=== PATIENT | male | born 1970 | race Caucasian/White ===

== ENCOUNTER 2023-10-09 10:42 | Emergency (ER) | payer OTHER, SELFPAY ==
[2023-10-09 10:44] VITALS: BP 120/85; PULSE 100; RESP 18; TEMP 37.1; O2SAT 98; BMI 36.2
--- NOTE | 2023-10-09 11:05 | ED.GENADULT ---
HPI - General Adult General Chief complaint: Abdominal Pain Stated complaint: heartburn, abdominal pain Time Seen by Provider: 10/09/23 10:48 History of Present Illness HPI narrative: Worsening acid reflux x1 month . Worried about an ulcer (had one 11 years ago). Pain from epigastric into throat. Some nausea but no emesis. Increased stress over past month. 53-year-old man presenting to the emergency department with concern of a burning epigastric pain that can radiate over to the left upper abdomen as well. He is worried that maybe has recurrence of his ulcer. Apparently had 110 or 11 years ago. He recalls on his last endoscopy that the ulcer had healed but there was some scarring still noted. He can feel little nauseated with this pain but isn't a major complaint. He feels that what aggravates in particular is when he gets worked up about something. There has been a good deal of on specified stress. Actually initiated fluoxetine about a week ago with visit with his primary care provider. This discomfort has been present over the last at least 3 weeks. Not have any radiating symptoms into his legs. Has doubled his daily PPI I believe on advice of his primary. Is also taking lot of Gaviscon. Nothing really seems to help. Stools are normal. Does have hemorrhoids but has not noticed any hematochezia. No melena. Diarrhea. No fever. He mentions a couple of years ago nearly where he believes he aspirated. He is noticing a bad taste in his mouth and dry mouth. Discomfort has been consistent at least over the last 2 weeks. Even up at night with a heating pad. Related Data Home Medications Medication Instructions Recorded Confirmed fluoxetine 20 mg capsule 20 mg PO DAILY 10/09/23 10/09/23 pantoprazole 40 mg tablet,delayed 40 mg PO DAILY 10/09/23 10/09/23 release Previous Rx's Medication Instructions Recorded sucralfate 100 mg/mL oral 10 ml PO BID-QID #1,000 mL 10/09/23 suspension (Carafate) Allergies Allergy/AdvReac Type Severity Reaction Status Date / Time No Known Drug Allergies Allergy Verified 10/09/23 10:48 Review of Systems Status of ROS: Reports: 6 or more systems reviewed and unremarkable except as noted in History and below PFSH PFS Social History Smoking Status: Never smoker Do you use any of these nicotine containing products: None Second hand tobacco smoke exposure: No How often do you have a drink containing alcohol: 2-3 times a week How many standard drinks containing alcohol do you have on a typical day: 1 or 2 How often do you have six or more drinks on one occasion: Never AUDIT-C Alcohol total score: 3 Non-prescribed substance use: denies use Exam Narrative: Exam Narrative: Pleasant. NAD. Calm. Long white goatee. Breathing easily. Lungs appear to be clear. Heart in regular rate and rhythm without murmur rub or gallop by mouth school today raygoza. Abdomen is overweight and soft. Maybe a little tinge of discomfort to palpation at the left hypogastric. No masses appreciated. No bruits. Contractures to the upper extremities. Extensive tattoo of the left arm. Extremities are well perfused. No edema. Oropharynx is WNL. No erythema. Const: Vital Signs, click to edit/add: Vital Signs - 24 hr 10/09/23 10:44 Temperature 98.8 F Pulse Rate [Pulse Oximeter] 100 Respiratory Rate 18 Blood Pressure [Ri t Upper Arm] 120/85 Pulse Oximetry 98 Oxygen Delivery Me thod Room Air Documenting provider has reviewed patient's vital signs: yes Course Vital Signs Vital signs: Initial Vital Signs Temperature 98.8 F 10/09/23 10:44 Temperature Source Temporal Artery Scan 10/09/23 10:44 Pulse Rate 100 10/09/23 10:44 Respiratory Rate 18 10/09/23 10:44 Blood Pressure 120/85 10/09/23 10:44 Blood Pressure Mean 96 10/09/23 10:44 Blood Pressure Position Sitting 10/09/23 10:44 Pulse Oximetry 98 10/09/23 10:44 Oxygen Delivery Method Room Air 10/09/23 10:44 Vital Signs Temperature 98.8 F 10/09/23 10:44 Pulse Rate 100 10/09/23 10:44 Respiratory Rate 18 10/09/23 10:44 Blood Pressure 120/85 10/09/23 10:44 Pulse Oximetry 98 10/09/23 10:44 Oxygen Delivery Method Room Air 10/09/23 10:44 Temperature 98.8 F 10/09/23 10:44 Pulse Rate 100 10/09/23 10:44 Respiratory Rate 18 10/09/23 10:44 Blood Pressure 120/85 10/09/23 10:44 Pulse Oximetry 98 10/09/23 10:44 Oxygen Delivery Method Room Air 10/09/23 10:44 Medications Administered Medications: Discontinued Medications Generic Name Dose Route Start Last Admin Trade Name Reina PRN Reason Stop Dose Admin Hyoscyamine 0.25 mg 10/09/23 12:47 10/09/23 13:32 Hyoscyamine Sulfate 0.125 Mg Tab SUBLINGUAL 10/09/23 12:48 0.25 mg ONCE ONE Administration Lidocaine HCl 7.5 ml 10/09/23 11:27 10/09/23 12:04 Lidocaine Hcl 4 % Top Soln 50 Ml Bottle PO 10/09/23 11:28 7.5 ml ONCE ONE Administration Lidocaine HCl 7.5 ml 10/09/23 12:47 10/09/23 13:32 Lidocaine Hcl 4 % Top Soln 50 Ml Bottle PO 10/09/23 12:48 7.5 ml ONCE ONE Administration Lidocaine/Aluminum/Magnesium/Simeth 30 ml 10/09/23 11:27 10/09/23 12:04 Mag Hydrox/Aluminum Hyd/Simeth 30 Ml Oral.Susp PO 10/09/23 11:28 30 ml ONCE ONE Administration Lidocaine/Aluminum/Magnesium/Simeth 30 ml 10/09/23 12:47 10/09/23 13:33 Mag Hydrox/Aluminum Hyd/Simeth 30 Ml Oral.Susp PO 10/09/23 12:48 30 ml ONCE ONE Administration Medical Decision Making MDM Narrative Medical decision making narrative: This certainly sounds to be some degree of gastritis or esophagitis. Will check labs though for other red flags. Doubtful cardiac. Does not have a cardiac history but will check. Post dissection would be a possibility too. Will chest x-ray. Does not have symptoms that would seem consistent with pancreatitis. Perhaps labs will direct further imaging. Still does have his gallbladder. H pylori testing of stool might be appropriate particular in outpatient setting. GI cocktail was briefly helpful and re-dosed. Hyoscyamine of uncertain affect. Since this seems to be the area of discomfort and temporary relief with essentially GI cocktail, perhaps medication like Carafate would be beneficial Labs are reassuring. See patient discharge plan for further discussion and prescriptions Lab Data Lab results reviewed: Yes I reviewed the patient's lab results Labs: Lab Results 10/09/23 Range/Units 12:24 WBC 6.89 (4.50-11.00) K/uL RBC 5.16 (4.30-5.90) m/uL Hgb 16.3 (13.5-17.5) gm/dL Hct 48.5 (37.0-53.0) % MCV 94 (80-100) fL MCH 32 (26-34) pg MCHC 34 (32-36) gm/dL RDW Coeff of Kiet 13.1 (11.5-15.5) % Plt Count 133 L (140-440) K/uL Neut % (Auto) 62.7 (42.0-72.0) % Lymph % (Auto) 29.2 (20-44) % [place] % (Auto) 7.0 (0.0-11.0) % Eos % (Auto) 0.7 (0.0-7.0) % Baso % (Auto) 0.3 (0.0-3.0) % Neut # (Auto) 4.32 (1.7-7.0) K/uL Lymph # (Auto) 2.01 (0.90-2.90) K/uL [place] # (Auto) 0.50 (0.00-0.90) K/UL Eos # (Auto) 0.05 (0.00-0.50) K/uL Baso # (Auto) 0.02 (0.00-0.30) K/uL Abs Immat Gran (auto) 0.01 (0.00-0.30) K/uL Imm/Tot Granulo (auto) 0.1 % Diff Slide Review Acceptable Review (Acceptable) D-Dimer Quant (PE/DVT) 0.25 (0.00-0.50) ug/ml Sodium 137 (135-149) mmol/L Potassium 5.0 (3.6-5.1) mmol/L Chloride 103 (96-114) mmol/L Carbon Dioxide 23 (20-32) mmol/L Anion Gap 11 (7-15) mEq/L BUN 16 (7-30) mg/dL Creatinine 0.7 (0.5-1.5) mg/dL Estimated Creat Clear 128.91 Estimated GFR 112 ml/min Glucose 104 (60-115) mg/dL Calcium 9.8 (8.4-10.6) mg/dL Total Bilirubin 1.1 (0.1-1.5) mg/dL Direct Bilirubin 0.5 (0.0-0.5) mg/dL AST 41 H (12-35) U/L ALT 29 (4-50) U/L Alkaline Phosphatase 49 (40-150) U/L Troponin I 0.01 (0.01-0.04) ng/mL C-Reactive Protein < 0.5 L (0.5-1.0) mg/dL Total Protein 9.7 H (6.0-8.3) g/dL Albumin 5.1 H (3.3-5.0) g/dL Lipase 205 (23-300) U/L ECG Data Attestation: I personally reviewed and interpreted this ECG as follows: (Normal sinus rhythm. Rate 78. Left axis deviation. Without acute ischemic changes.) Discharge Plan Discharge Clinical Impression: Epigastric abdominal pain Patient Disposition: Home w/ Parent or Adult Condition: Improved Additional Instructions: Continue to stay well-hydrated. Consider splitting your dose of pantoprazole to twice daily or decreasing the dose in half of current dosing while combining it with famotidine maybe dosed once or twice daily or could be used as needed for flares. Can use liquid antacid/anti-gas as well for flares. Otherwise take Carafate regularly. Follow-up in 1-2 weeks; I believe that coincides with your upcoming appointment. Might need to schedule repeat EGD and/or H pylori analysis. Of course feel free to return for marked increase in persistent pain, repeated vomiting, fever. Depending on insurance coverage might need to switch to pill/tablet of Carafate. Dose the Carafate 2-4 times daily somewhat dependent on relief of symptoms and potential effect on bowels. Prescriptions: New sucralfate [Carafate] 100 mg/mL suspension 10 ml PO BID-QID Qty: 1000 0RF No Action pantoprazole 40 mg tablet,delayed release (DR/EC) 40 mg PO DAILY fluoxetine 20 mg capsule 20 mg PO DAILY Follow Up/Referrals: Zarina Ferris PA-C [Primary Care Provider] - Stand Alone Forms: [employer] Info Instructions
[2023-10-09] MEDS: lidocaine HCL 4 % TOP SOLN 50 ML BOTTLE 7.5 ML PO ×2 (12:04→13:32)
[2023-10-09] MEDS: MAG HYDROX/ALUMINUM HYD/SIMETH 30 ML ORAL.SUSP PO ×2 (12:04→13:33)
[2023-10-09 12:32] LABS: Basophils Absolute Auto 0.02 K/uL (0.00-0.30); Basophils Percent Auto 0.3 % (0.0-3.0); Eosinophils Absolute Auto 0.05 K/uL (0.00-0.50); Eosinophils Percent Auto 0.7 % (0.0-7.0); Hematocrit 48.5 % (37.0-53.0); Hemoglobin* 16.3 gm/dL (13.5-17.5); Immature Granulocytes Abs Auto 0.01 K/uL (0.00-0.30); Immature Granulocytes Pct Auto 0.1 %; Lymphocytes Absolute Auto 2.01 K/uL (0.90-2.90); Lymphocytes Percent Auto 29.2 % (20-44); Mean Corpuscular HGB Conc 34 gm/dL (32-36); Mean Corpuscular Hemoglobin 32 pg (26-34); Mean Corpuscular Volume 94 fL (80-100); Neutrophils Absolute Auto 4.32 K/uL (1.7-7.0); Neutrophils Percent Auto 62.7 % (42.0-72.0); RDW Coefficient of Variation % 13.1 % (11.5-15.5); Red Blood Count 5.16 m/uL (4.30-5.90); White Blood Count* 6.89 K/uL (4.50-11.00)
[2023-10-09 12:47] LABS: Albumin* 5.1 g/dL (3.3-5.0); Chloride* 103 mmol/L (96-114); Sodium* 137 mmol/L (135-149)
[2023-10-09 12:49] LABS: Creatinine* 0.7 mg/dL (0.5-1.5); Est. Creatinine Clearance* 128.91; Estimated Glomerular Filt Rate 112 ml/min
[2023-10-09 12:50] LABS: Alanine Aminotransferase* 29 U/L (4-50); Alkaline Phosphatase* 49 U/L (40-150); Anion Gap 11 mEq/L (7-15); Aspartate Amino Transferase* 41 U/L (12-35); Bilirubin Direct* 0.5 mg/dL (0.0-0.5); Bilirubin Total* 1.1 mg/dL (0.1-1.5); Blood Urea Nitrogen* 16 mg/dL (7-30); Calcium* 9.8 mg/dL (8.4-10.6); Carbon Dioxide* 23 mmol/L (20-32); Glucose* 104 mg/dL (60-115); Lipase* 205 U/L (23-300); Total Protein* 9.7 g/dL (6.0-8.3)
[2023-10-09 12:56] LABS: Platelet Count* 133 K/uL (140-440); Slide Review Reflex Yes
[2023-10-09 12:57] LABS: Slide Review Acceptable Review (Acceptable)
[2023-10-09 12:58] LABS: C Reactive Protein* < 0.5 mg/dL (0.5-1.0)
[2023-10-09 13:01] LABS: D Dimer Quantitative* 0.25 ug/ml (0.00-0.50)
[2023-10-09 13:02] LABS: Troponin I* 0.01 ng/mL (0.01-0.04)
[2023-10-09] MEDS: HYOSCYAMINE SULFATE 0.125 MG TAB 0.25 MG SUBLINGUAL (13:32)
== END 2023-10-09 14:18 | disposition home or self-care (01) ==
PROVIDERS: Emergency Provider Family Medicine; PCP Physician Assistant Medical
DX: R10.13 Epigastric pain (principal)
CPT/HCPCS: 36415; 80048; 80076; 83690; 84484; 85025; 85379; 86140; 99284; A9270